=== PATIENT | male | born 1980 | race Caucasian/White ===

== ENCOUNTER 2017-11-29 10:50 | Outpatient (CLI) | payer OTHER ==
[~2017-11-29 10:50] MED LIST: NO HOME MEDS
== END 2017-11-29 23:59 | disposition home or self-care (01) ==
LOC: RAD 10:50
PROVIDERS: ATTEND Family Medicine
DX: M54.2 Cervicalgia (principal)
CPT/HCPCS: 72050

== ENCOUNTER 2018-03-06 08:21 | Emergency (ER) | payer OTHER ==
[~2018-03-06] VITALS: Ht 180.3 cm; Wt 86.4 kg
[2018-03-06] MEDS ORDERED: dexamethasone sod phosphate 10mg/ml inj IM STA (08:47)
[2018-03-06] MEDS ORDERED: CYCL-1 PO (08:49)
[2018-03-06] MEDS ORDERED: KETO10TA2 PO (08:49)
[2018-03-06 08:50] VITALS: BP 152/84
[2018-03-06] MEDS ORDERED: ketorolac trometh inj. 60 MG/2 ML VIAL IM ONE (08:50)
== END 2018-03-06 09:11 | disposition home or self-care (01) ==
LOC: ER 08:22
DX: S39.012A Strain of muscle, fascia and tendon of lower back, initial encounter (principal); M54.32 Sciatica, left side; Z88.0 Allergy status to penicillin; Z79.899 Other long term (current) drug therapy; X58.XXXA Exposure to other specified factors, initial encounter; Y93.64 Activity, baseball; Y92.89 Other specified places as the place of occurrence of the external cause; Y99.8 Other external cause status
CPT/HCPCS: 96372; 99284; J1100; J1885